=== PATIENT | male | born 1980 | race Caucasian/White ===

== ENCOUNTER → 2016-06-22 | Outpatient (REF) ==
--- NOTE | 2016-06-22 14:46 | Diagnostic Imaging Report ---
PA and lateral views of the chest Indication: Preemployment exam Findings: The lungs are clear. The heart size is normal. There is no effusion or pneumothorax The mediastinum and anna appear unremarkable. Impression: Unremarkable study. Dictated by: Dictated on workstation # [id number]
== END | disposition home or self-care (01) ==
LOC: OCC 14:19
PROVIDERS: ATTEND Nurse Practitioner Family
CPT/HCPCS: 71020